=== PATIENT | female | born 1955 ===

== ENCOUNTER → 2021-05-30 | Outpatient (CLI) | payer OTHER ==
[~2021-05-30] MED LIST: ? CHOLESTEROL MED; ? HTN MED; ASPI325 PO; CHOL10002; CITA20 PO; DRON2.5; ESCI20 PO; FENO145 PO; FEXPSEER PO; FISH1000 PO; GLIP2.5ER PO; HYDACE5 PO; LISI20 PO; LOSA50 PO; METANX CAPSULE1 EACH PO; METF500 PO; MULT50L PO; NAPR500 PO; NIAC250ER; OMEG1CAP30 PO; PIOG15; PIOG30 PO; PRAV20 PO; Prilosec Otc20 MG PO; SITA100T2 PO; SITA25T2; SITA50T2 PO; Synthroid25 MCG; VALS80; VITAMIN D22000 UNIT PO
[2021-05-30 12:15] LABS: BASOPHILS ABSOLUTE AUTO 0.07 K/mm3 (0.00-0.23); BASOPHILS PERCENT AUTO 1 % (0-2); EOSINOPHILS ABSOLUTE AUTO 0.22 K/mm3 (0.00-0.68); EOSINOPHILS PERCENT AUTO 2 % (0-6); Hematocrit 43.4 % (33.0-51.0); Hemoglobin 14.5 g/dL (11.5-16.0); IMMATURE GRAN ABSOLUTE AUTO 0.02 K/mm3 (0.00-0.10); IMMATURE GRAN PERCENT AUTO 0 % (0-1); LYMPHOCYTES ABSOLUTE AUTO 3.47 K/mm3 (0.84-5.20); LYMPHOCYTES PERCENT AUTO 39 % (21-46); MONOCYTES ABSOLUTE AUTO 0.67 K/mm3 (0.16-1.47); MONOCYTES PERCENT AUTO 7 % (4-13); Mean Corpuscular HGB 29.8 pg (26.0-34.0); Mean Corpuscular HGB Conc 33.4 g/dL (31.5-36.5); Mean Corpuscular Volume 89 fL (80-100); Mean Platelet Volume 8.9 fL (9.1-12.4); NEUTROPHILS ABSOLUTE AUTO 4.55 K/mm3 (1.96-9.15); NEUTROPHILS PERCENT AUTO 51 % (41-73); Platelet Count 289 K/mm3 (150-400); RDW Coefficient Variation 13.2 % (11.7-14.2); RDW Standard Deviation 42.8 fL (35.1-46.3); Red Blood Cell Count 4.87 M/mm3 (3.80-5.20)
[2021-05-30 12:33] LABS: Anion Gap 8 mmol/L (6-16); Blood Urea Nitrogen 17 mg/dL (8-24); Bun/Creatinine Ratio 26.2 (12.0-20.0); CO2, Blood 30 mmol/L (21-32); Calcium, Blood 9.2 mg/dL (8.5-10.1); Chloride, Blood 101 mmol/L (98-108); Creatinine, Blood 0.65 mg/dL (0.40-1.00); Glomerular Filtration Rate >60 (60-); Glucose, Blood 114 mg/dL (70-99); Potassium, Blood 3.9 mmol/L (3.5-5.5); Sodium, Blood 139 mmol/L (136-145); Thyroid Stimulating Hormone 3.171 uIU/mL (0.360-4.800)
[2021-05-30 12:36] LABS: Troponin I <0.017 ng/mL (0.000-0.040)
== END | disposition home or self-care (01) ==
LOC: LAB SHORT 12:08
PROVIDERS: Physician Assistant Surgical
DX: R53.83 Other fatigue (principal)
CPT/HCPCS: 80048; 84443; 84484; 85025; 87086

== ENCOUNTER → 2022-08-13 | Outpatient (CLI) | payer OTHER ==
[2022-08-14 13:42] LABS: Stool Occult Bld Immuno 1 Negative (NEGATIVE)
== END | disposition home or self-care (01) ==
LOC: LAB SHORT 15:00
PROVIDERS: Internal Medicine Endocrinology, Diabetes & Metabolism
DX: Z12.11 Encounter for screening for malignant neoplasm of colon (principal)
CPT/HCPCS: G0328

== ENCOUNTER 2023-08-03 10:00 | Day surgery (SDC) | payer OTHER ==
[2023-08-03] MEDS ORDERED: TRULICITY4.5 MG/0.5 SC (11:22)
[2023-08-03] MEDS ORDERED: Crestor40 MG PO (11:34)
== END 2023-08-08 | disposition home or self-care (01) ==
LOC: MOI US 10:00
PROC: 0HBT0ZZ Excision of Right Breast, Open Approach (ICD-10-PCS; principal; 2023-08-04)
PROC: 07B50ZZ Excision of Right Axillary Lymphatic, Open Approach (ICD-10-PCS; principal; 2023-08-04)
DX: C50.811 Malignant neoplasm of overlapping sites of right female breast (principal); Z17.0 Estrogen receptor positive status [ER+]; C77.3 Secondary and unspecified malignant neoplasm of axilla and upper limb lymph nodes
CPT/HCPCS: 19285; 77065; A4648

== ENCOUNTER 2023-08-04 08:30 | Day surgery (SDC) | payer OTHER ==
[~2023-08-04] VITALS: Ht 165 cm; Wt 80.0 kg
[2023-08-04] VITALS (14 sets, daily range): BP systolic 127–167; BP diastolic 81–100
[~2023-08-04 08:30] MED LIST changes: +Crestor40 MG PO; +TRULICITY4.5 MG/0.5 SC
--- NOTE | 2023-08-04 15:20 | NUR ---
Discharge instructions reviewed with patient. Patient verbalizes understanding. Copy given to patient to take home. 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 Dressing to procedure site clean, dry, intact with no visible drainage, swelling. Patient States Post-Procedure ride home has been arranged. Discharged via wheelchair to private car for ride home.
== END 2023-08-04 15:23 | disposition home or self-care (01) ==
LOC: ORSCMMR 08:30 → NM 08:30 → ORSCMMR 08:36 → NM 09:30
PROVIDERS: Surgery
PROC: 07B50ZX Excision of Right Axillary Lymphatic, Open Approach, Diagnostic (ICD-10-PCS; principal; 2023-08-04 10:30)
PROC: 0HBT0ZZ Excision of Right Breast, Open Approach (ICD-10-PCS; principal; 2023-08-04 10:30)
DX: C50.811 Malignant neoplasm of overlapping sites of right female breast (principal); Z17.0 Estrogen receptor positive status [ER+]; C77.3 Secondary and unspecified malignant neoplasm of axilla and upper limb lymph nodes; I10 Essential (primary) hypertension; E11.9 Type 2 diabetes mellitus without complications; E03.9 Hypothyroidism, unspecified; K21.9 Gastro-esophageal reflux disease without esophagitis; Z79.84 Long term (current) use of oral hypoglycemic drugs; Z79.899 Other long term (current) drug therapy
CPT/HCPCS: 38792; 76098; 82947; 88307; A9270; A9520; J0690; J1100; J2250; J2371; J2405; J2704; J3010; J7120; Q9968

== ENCOUNTER → 2024-09-05 | Outpatient (CLI) | payer OTHER | LOC: LAB SHORT 12:47 → LAB 12:47 | DX: N39.0 Urinary tract infection, site not specified (principal) | CPT/HCPCS: 87086 ==

== ENCOUNTER → 2025-06-26 | Outpatient (CLI) | payer OTHER ==
[2025-06-26 21:08] LABS: Creatinine, Urine Random 21.8 mg/dL (27.00-270.00); Microalbumin, Random Urine 20.8 mg/L (0.000-20.000)
== END ==
LOC: LAB SHORT 17:43 → LAB 17:43
PROVIDERS: Physician Assistant
DX: E11.29 Type 2 diabetes mellitus with other diabetic kidney complication (principal); E11.618 Type 2 diabetes mellitus with other diabetic arthropathy; E11.42 Type 2 diabetes mellitus with diabetic polyneuropathy; E11.59 Type 2 diabetes mellitus with other circulatory complications; E11.69 Type 2 diabetes mellitus with other specified complication; R80.9 Proteinuria, unspecified
CPT/HCPCS: 82043; 82570